=== PATIENT | male | born 1975 | race Two or more races ===

== ENCOUNTER 2017-05-19 19:12 | Emergency (ER) | payer OTHER ==
--- NOTE | 2017-05-19 19:48 | EDM.PDOC ---
ED HPI GENERAL MEDICAL PROBLEM - General Chief Complaint: Upper Extremity Injury/Pain Stated Complaint: LEFT HAND PAIN Time Seen by Provider: 05/19/17 19:16 Source of Information: Reports: Patient History Limitations: Reports: No Limitations - History of Present Illness INITIAL COMMENTS - FREE TEXT/NARRATIVE: This is a 41-year-old male. He apparently woke this morning noted he had pain and swelling in his left wrist over the left distal ulnar area and the left fifth metacarpal. It has continued to bother him today with decreased range of motion of the left wrist and continued pain and swelling in that area. He states he hasn't fallen or injured that he knows of. He doesn't think anything. It probably was sleeping. He thinks he might a slept on it wrong and that's what caused the injury. Due to his persistent symptoms he comes to the ER for evaluation. He denies any numbness or tingling in his fingers. Left Hand Pain Score (Numeric/FACES): 9 - Related Data Allergies Allergy/AdvReac Type Severity Reaction Status Date / Time No Known Allergies Allergy Verified 05/19/17 19:30 Home Meds: Home Meds . [No Known Home Meds] 05/19/17 [History] Past Medical History - Past Surgical History HEENT Surgical History: Reports: Tonsillectomy Social & Family History - Tobacco Use Smoking Status *Q: Never Smoker - Caffeine Use Caffeine Use: Reports: Soda, Tea - Recreational Drug Use Recreational Drug Use: No Review of Systems - Review of Systems Review Of Systems: See Below Constitutional: Reports: No Symptoms Eyes: Reports: No Symptoms Ears: Reports: No Symptoms Nose: Reports: No Symptoms Mouth/Throat: Reports: No Symptoms Respiratory: Reports: No Symptoms Cardiovascular: Reports: No Symptoms GI/Abdominal: Reports: No Symptoms Genitourinary: Reports: No Symptoms Musculoskeletal: Reports: Other (As per history of present illness) Skin: Reports: No Symptoms Neurological: Reports: No Symptoms Psychiatric: Reports: No Symptoms ED EXAM, GENERAL - Physical Exam Exam: See Below Exam Limited By: No Limitations General Appearance: Alert, WD/WN, No Apparent Distress Eye Exam: Bilateral Eye: Normal Inspection Ears: Normal External Exam Nose: Normal Inspection Throat/Mouth: Normal Inspection Head: Normocephalic Neck: Supple Respiratory/Chest: No Respiratory Distress Back Exam: Full Range of Motion Extremities: Other (Of the left wrist he does have some mild swelling over the distal ulnar area and in the hypopharynx thenar prominence of his left hand, because of this he does have some decreased flexion and extension of the wrist, he is able to make a fist but he says it hurts when he does so, neurovascular is intact in all 5 digits, he denies any other acute injury) Neurological: Alert, Oriented Psychiatric: Normal Affect, Normal Mood Skin Exam: Warm, Dry Course - Vital Signs Last Recorded V/S: Last Vital Signs Temp 97.6 F 05/19/17 19:31 Pulse 86 05/19/17 19:31 Resp 18 05/19/17 19:31 BP 139/70 05/19/17 19:31 Pulse Ox 98 05/19/17 19:31 - Orders/Labs/Meds Orders: Active Orders 24 hr Category Date Time Status Communication Order [RC] STAT Care 05/19/17 21:02 Ordered Hand Comp Min 3V Lt [CR] Stat Exams 05/19/17 19:44 Taken Wrist Comp Min 3V Lt [CR] Stat Exams 05/19/17 19:43 Taken - Radiology Interpretation Free Text/Narrative:: X-ray suggest may be a small avulsion fracture off the lunate bone otherwise was no acute fractures noted. I did show the patient the x-ray and suggested that once the radiologist reads it I will give him a call. - Re-Assessments/Exams Free Text/Narrative Re-Assessment/Exam: 05/19/17 21:03 I spoke to the patient regarding a splint to the left wrist at which time once I know the results of the x-ray HIM a call. I will refer him to Dr. Lux' Departure - Departure Time of Disposition: 21:03 Disposition: Home, Self-Care 01 Condition: Good Clinical Impression: Sprain of left wrist Qualifiers: Encounter type: initial encounter Qualified Code(s): S63.502A - Unspecified sprain of left wrist, initial encounter Fx lunate, wrist-closed Qualifiers: Encounter type: initial encounter Fracture alignment: nondisplaced Laterality: left Qualified Code(s): S62.125A - Nondisplaced fracture of lunate [semilunar], left wrist, initial encounter for closed fracture - Discharge Information Referrals: PCP,None [Primary Care Provider] - Eligio Lux MD [Physician] - Forms: ED Department Discharge Additional Instructions: Wear the splint when you're up and also when you're sleeping, you may still use your fingers carefully with that left hand even though you wearing the splint, get some Aleve or ibuprofen and start taking to help with the swelling and the soreness, also would be good to ice the area down when you have the splint off and also try to keep it elevated to help the swelling to go down, call Dr. Lux' s office on Sunday for an appointment to be checked this week, return to the ER if needed - My Orders Last 24 Hours: My Active Orders 05/19/17 19:43 Wrist Comp Min 3V Lt [CR] Stat 05/19/17 19:44 Hand Comp Min 3V Lt [CR] Stat 05/19/17 21:02 Communication Order [RC] STAT - Assessment/Plan Last 24 Hours: My Active Orders 05/19/17 19:43 Wrist Comp Min 3V Lt [CR] Stat 05/19/17 19:44 Hand Comp Min 3V Lt [CR] Stat 05/19/17 21:02 Communication Order [RC] STAT
--- NOTE | 2017-05-20 12:13 | CR ---
Left hand: Four views of the left hand were obtained. Comparison: No prior study. Joint spaces are preserved. No fracture, dislocation or other bony abnormality is seen. Impression: 1. No acute abnormality is seen on left hand exam. Diagnostic code #1
--- NOTE | 2017-05-20 12:13 | CR ---
Left wrist: Four views of the left wrist were obtained. Comparison: No prior wrist exam. Joint spaces are maintained. No fracture, dislocation or other bony abnormality is seen. Impression: 1. No abnormality is identified on four-view left wrist exam. Diagnostic code #1
== END 2017-05-19 21:22 | disposition home or self-care (01) ==
LOC: JD.ED 19:12
DX: S62.125A Nondisplaced fracture of lunate [semilunar], left wrist, initial encounter for closed fracture (principal); X58.XXXA Exposure to other specified factors, initial encounter
CPT/HCPCS: 73110-26-LT; 73110-LT; 73130-26-LT; 73130-LT; 99283; 99284

== ENCOUNTER 2017-11-01 09:51 | Emergency (ER) | payer OTHER ==
--- NOTE | 2017-11-01 10:43 | EDM.PDOC ---
ED HPI GENERAL MEDICAL PROBLEM - General Chief Complaint: ENT Problem Stated Complaint: EAR PROBLEMS Time Seen by Provider: 11/01/17 10:00 Source of Information: Reports: Patient History Limitations: Reports: No Limitations - History of Present Illness INITIAL COMMENTS - FREE TEXT/NARRATIVE: The patient presents with ear pressure. He gets cerumen build up at times and he feels like there is a build up. He has been doing some flying lately. He has no pain, fever, chills, cough, congestion or runny nose. He has no chest pain, cough, abdominal pain, nausea or vomiting. Onset: Gradual Duration: Day(s): Location: Reports: Other (ears) Quality: Reports: Pressure Severity: Mild Improves with: Reports: None Worsens with: Reports: None Associated Symptoms: Reports: No Other Symptoms - Related Data Allergies Allergy/AdvReac Type Severity Reaction Status Date / Time No Known Allergies Allergy Verified 11/01/17 09:58 Home Meds: Home Meds . [No Known Home Meds] 05/19/17 [History] Past Medical History - Past Surgical History HEENT Surgical History: Reports: Tonsillectomy Social & Family History - Tobacco Use Smoking Status *Q: Unknown Ever Smoked - Caffeine Use Caffeine Use: Reports: Soda, Tea ED ROS ENT - Review of Systems Review Of Systems: See Below Constitutional: Reports: No Symptoms HEENT: Reports: Other (Ear pressure) Respiratory: Reports: No Symptoms Cardiovascular: Reports: No Symptoms Endocrine: Reports: No Symptoms GI/Abdominal: Reports: No Symptoms : Reports: No Symptoms Musculoskeletal: Reports: No Symptoms Skin: Reports: No Symptoms ED EXAM, ENT - Physical Exam Exam: See Below Exam Limited By: No Limitations General Appearance: Alert, No Apparent Distress Ears: Normal External Exam, Canal Material (Cerumen in each canal the right worse then the left) Nose: Normal Inspection Respiratory/Chest: No Respiratory Distress Course - Vital Signs Last Recorded V/S: Last Vital Signs Temp 99.4 F 11/01/17 09:58 Pulse 80 11/01/17 09:58 Resp BP 129/94 H 11/01/17 09:58 Pulse Ox 99 11/01/17 09:58 - Re-Assessments/Exams Free Text/Narrative Re-Assessment/Exam: 11/01/17 10:41 I had my nurse irrigate his ears and I will discharge him home. Departure - Departure Time of Disposition: 22:45 Disposition: Home, Self-Care 01 Condition: Good Clinical Impression: Excessive cerumen in both ear canals - Discharge Information Referrals: PCP,None [Primary Care Provider] - Lesly Mayberry MD [Physician] - Additional Instructions: If you feel more wax build up, try some debrox or return for more help.
== END 2017-11-01 10:55 | disposition home or self-care (01) ==
LOC: JD.ED 09:51
DX: H61.23 Impacted cerumen, bilateral (principal)
CPT/HCPCS: 99283